=== PATIENT | female | born 1960 ===

== ENCOUNTER → 2021-05-12 | Outpatient (CLI) | payer OTHER ==
[~2021-05-12] MED LIST: ALLEGRA ALLERGY60 MG; Necon1 EAC2
[2021-05-13 17:11] LABS: HPV 16 Negative (Negative); HPV 18 Negative (Negative); HPV OTHER HR TYPES Negative (Negative)
== END ==
LOC: LAB 09:32 → LAB SHORT 09:32
PROVIDERS: Registered Nurse Community Health
DX: Z12.4 Encounter for screening for malignant neoplasm of cervix (principal); Z88.5 Allergy status to narcotic agent
CPT/HCPCS: 87624; G0123